=== PATIENT | male | born 2000 | race African-American/Black ===

== ENCOUNTER 2018-03-06 20:43 | Emergency (ER) | payer MEDICAID, OTHER, SELFPAY ==
[2018-03-06] MEDS ORDERED: Acetaminophen 500 MG TAB ONE (21:26)
[2018-03-06] MEDS ORDERED: Dexamethasone 4 mg/ml Vial ONE (21:50)
== END 2018-03-06 22:39 | disposition home or self-care (01) ==
LOC: ERS 20:43
DX: J02.0 Streptococcal pharyngitis (principal)
CPT/HCPCS: 87081; 87430; 99283; J1100